=== PATIENT | male | born 1970 | race Two or more races ===

== ENCOUNTER 2016-12-12 10:04 | Inpatient (IN) | payer OTHER ==
[~2016-12-12] VITALS: Ht 172.7 cm; Wt 87.5 kg
[2016-12-12] VITALS (10 sets, daily range): BP systolic 128–167; BP diastolic 76–100
--- NOTE | 2016-12-12 10:22 | Emergency Room Report ---
History of Present Illness General Chief Complaint: Abdominal Pain Source: Patient Present Illness HPI Patient present with complaints of right lower quadrant pain ongoing for the past 14 hours Pain is 6/10 sharp localized to that region He had taken medications for possible gas however this morning as the pain Persisted this morning patient was concerning came to the ER Denies any vomiting however has had decreased oral intake Denies any diarrhea denies any fevers Denies any chest pain or shortness of breath Allergies: Coded Allergies: No Known Allergies (Unverified , 12/12/16) Patient History Past Medical History: see triage record Pertinent Family History: none Reviewed Nursing Documentation: PMH: Agreed, PSxH: Agreed Nursing Documentation-PMH Past Medical History: No History, Except For Review of Systems All Other Systems: negative except mentioned in HPI Physical Exam Vital Signs Date Time Temp Pulse Resp B/P Pulse Ox O2 Delivery O2 Flow Rate FiO2 12/12/16 10:08 98.2 90 16 149/102 95 Room Air Sp02 EP Interpretation: reviewed, normal General Appearance: well appearing, no apparent distress Head: normocephalic, atraumatic Eyes: bilateral eye EOMI, bilateral eye PERRL ENT: hearing grossly normal, normal pharynx, TMs + canals normal, uvula midline Neck: full range of motion, supple, no meningismus, no bony tend Respiratory: lungs clear, normal breath sounds, no rhonchi, no respiratory distress, no retraction, no accessory muscle use Cardiovascular #1: normal peripheral pulses, regular rate, rhythm, no edema, no gallop, no JVD, no murmur Gastrointestinal: normal bowel sounds, soft, no mass, no organomegaly, non- distended, no guarding, no hernia, no pulsatile mass, no rebound, tenderness - Over the right lower abdominal area, approaching the inguinal region Genitourinary: no CVA tenderness Musculoskeletal: normal inspection Neurologic: oriented x3, responsive, motel clerk III-XII nml as tested, motor strength/ tone normal, sensory intact Psychiatric: mood/affect normal Skin: normal color, no rash, warm/dry, palpation normal Lymphatic: normal inspection, no adenopathy Medical Decision Making Diagnostic Impression: Primary Impression: Acute appendicitis ER Course With the history exam and presentation, multiple differentials considered, including but not limited to appendicitis, gastritis, cholecystitis, diverticulitis Patient's white blood cell count had minimal elevation and At this time the CT report is read by radiology as acute appendicitis Patient provided with IV antibiotics general surgery has been contacted and will consult on patient Labs Test 12/12/16 10:30 12/12/16 11:35 White Blood Count 11.1 K/UL (4.8-10.8) Red Blood Count 5.32 M/UL (4.70-6.10) Hemoglobin 16.1 G/DL (14.2-18.0) Hematocrit 48.1 % (42.0-52.0) Mean Corpuscular Volume 90 FL (80-99) Mean Corpuscular Hemoglobin 30.3 PG (27.0-31.0) Mean Corpuscular Hemoglobin Concent 33.5 G/DL (32.0-36.0) Red Cell Distribution Width 12.4 % (11.6-14.8) Platelet Count 175 K/UL (150-450) Mean Platelet Volume 9.4 FL (6.5-10.1) Neutrophils (%) (Auto) 79.4 % (45.0-75.0) Lymphocytes (%) (Auto) 12.7 % (20.0-45.0) Monocytes (%) (Auto) 6.0 % (1.0-10.0) Eosinophils (%) (Auto) 1.1 % (0.0-3.0) Basophils (%) (Auto) 0.7 % (0.0-2.0) Prothrombin Time 10.0 SEC (9.30-11.50) Prothromb Time International Ratio 1.0 (0.9-1.1) Activated Partial Thromboplast Time 28 SEC (23-33) Sodium Level 137 mEQ/L (135-145) Potassium Level 3.8 mEQ/L (3.4-4.9) Chloride Level 96 mEQ/L (98-107) Carbon Dioxide Level 24 mEQ/L (20-30) Anion Gap 17 (5-15) Blood Urea Nitrogen 12 mg/dL (7-23) Creatinine 1.1 mg/dL (0.7-1.2) Estimat Glomerular Filtration Rate > 60 mL/min (>60) Glucose Level 116 mg/dL (74-106) Calcium Level 9.3 mg/dL (8.6-10.2) Total Bilirubin 0.7 mg/dL (0.0-1.2) Aspartate Amino Transf (AST/SGOT) 20 U/L (5-40) Alanine Aminotransferase (ALT/SGPT) 21 U/L (3-41) Alkaline Phosphatase 84 U/L (40-129) Total Protein 7.2 g/dL (6.6-8.7) Albumin 4.3 g/dL (3.5-5.2) Globulin 2.9 g/dL Albumin/Globulin Ratio 1.4 (1.0-2.7) Lipase 26 U/L (< 60) Urine Color Pale yellow Urine Appearance Clear Urine pH 6 (4.5-8.0) Urine Specific [place] 1.010 (1.005-1.035) Urine Protein Negative (NEGATIVE) Urine Glucose (UA) Negative (NEGATIVE) Urine Ketones Negative (NEGATIVE) Urine Occult Blood 1+ (NEGATIVE) Urine Nitrite Negative (NEGATIVE) Urine Bilirubin Negative (NEGATIVE) Urine Urobilinogen Normal MG/DL (0.0-1.0) Urine Leukocyte Esterase Negative (NEGATIVE) Urine RBC 0-2 /HPF (0 - 0) Urine WBC 0-2 /HPF (0 - 0) Urine Squamous Epithelial Cells Occasional /LPF Urine Bacteria Occasional /HPF (NONE) Last Vital Signs Date Time Temp Pulse Resp B/P Pulse Ox O2 Delivery O2 Flow Rate FiO2 12/12/16 10:08 98.2 90 16 149/102 95 Room Air Status: improved Disposition: ADMITTED INPATIENT Condition: Serious DEBORA PRADO D.O. December 12, 2016 10:22
[2016-12-12] MEDS ORDERED: Ketorolac 30mg Inj IV ONE (10:30)
[2016-12-12 10:49] LABS: BASOPHILS % (AUTO) 0.7 % (0.0-2.0); EOSINOPHILS % (AUTO) 1.1 % (0.0-3.0); LYMPHOCYTES % (AUTO) 12.7 % (20.0-45.0); MEAN CORPUSCULAR HEMOGLOBIN 30.3 PG (27.0-31.0); MEAN CORPUSCULAR HGB CONC 33.5 G/DL (32.0-36.0); MEAN CORPUSCULAR VOLUME 90 FL (80-99); MEAN PLATELET VOLUME 9.4 FL (6.5-10.1); NEUTROPHILS % (AUTO) 79.4 % (45.0-75.0); PLATELET COUNT 175 K/UL (150-450); RED BLOOD COUNT 5.32 M/UL (4.70-6.10); RED CELL DISTRIBUTION WIDTH 12.4 % (11.6-14.8); WHITE BLOOD COUNT 11.1 K/UL (4.8-10.8)
[2016-12-12 11:03] LABS: ALANINE AMINOTRANSFERASE 21 U/L (3-41); ALBUMIN/GLOBULIN RATIO 1.4 (1.0-2.7); ANION GAP 17 (5-15); ASPARTATE AMINO TRANSFERASE 20 U/L (5-40); CALCIUM 9.3 mg/dL (8.6-10.2); CARBON DIOXIDE 24 mEQ/L (20-30); CHLORIDE 96 mEQ/L (98-107); CREATININE 1.1 mg/dL (0.7-1.2); GLOMERULAR FILTRATION RATE > 60 mL/min (>60); HEMOLYSIS 9; LIPASE 26 U/L (< 60); POTASSIUM 3.8 mEQ/L (3.4-4.9); SODIUM 137 mEQ/L (135-145); TOTAL PROTEIN 7.2 g/dL (6.6-8.7)
[2016-12-12 12:08] LABS: APPEARANCE,URINE CLEAR; KETONES,URINE NEGATIVE (NEGATIVE); LEUKOCYTE ESTERASE ,URINE NEGATIVE (NEGATIVE); NITRITE,URINE NEGATIVE (NEGATIVE); PH,URINE 6 (4.5-8.0); PROTEIN,URINE NEGATIVE (NEGATIVE); UROBILINOGEN,URINE NORMAL MG/DL (0.0-1.0)
[2016-12-12 12:20] LABS: BACTERIA,URINE OCCASIONAL /HPF; RBC,URINE 0-2 /HPF (0 - 0); SQUAMOUS EPITHELIAL CELL,UR OCCASIONAL /LPF (NONE/OCC); WBC,URINE 0-2 /HPF (0 - 0)
[2016-12-12] MEDS ORDERED: Zosyn 3.375gm inj ONE (14:07)
[2016-12-12] MEDS ORDERED: Piperacillin/Tazobactam 3.375 GM in NS 110 ML IVPB ONE ×2 (14:15→22:50)
[2016-12-12] MEDS ORDERED: BUSPIRONE HCL30 MG ORAL (14:19)
[2016-12-12] MEDS ORDERED: BUPROPION HCL100 MG ORAL (15:31)
[2016-12-12] MEDS ORDERED: WELLBUTRIN XL150 M3 ORAL (15:48)
[2016-12-12] MEDS ORDERED: OMEPRAZOLE20 M2 ORAL (15:48)
[2016-12-12] MEDS ORDERED: Bupivacaine 0.25% Inj 30ml INJ ONE (16:31)
[2016-12-12] MEDS ORDERED: Bacitracin 50000 Units Vial ONE (16:31)
[2016-12-12] MEDS ORDERED: Propofol 10mg/ml 20ml IV ONE ×2 (16:52→16:55)
[2016-12-12] MEDS ORDERED: Sterile Water Irrig 1000ml IRRIG ONE (17:00)
[2016-12-12] MEDS ORDERED: NS Irrig 1000ml ONE (17:00)
[2016-12-12] MEDS ORDERED: Ketorolac 30mg Inj ONE (17:00)
[2016-12-12] MEDS ORDERED: Glycopyrrolate 0.2mg/ml 1ml Vial ONE (17:00)
[2016-12-12] MEDS ORDERED: Succinylcholine 20mg/ml 10ml vial ONE (17:00)
[2016-12-12] MEDS ORDERED: Midazolam 2mg/2ml Inj ONE (17:00)
[2016-12-12] MEDS ORDERED: fentaNYL 100 mcg/2 mL IV ONE (17:00)
[2016-12-12] MEDS ORDERED: Zemuron 50mg/5ml Inj IV ONE (17:00)
[2016-12-12] MEDS ORDERED: Neostigmine 1mg/ml 10ml Inj ONE (17:00)
[2016-12-12] MEDS ORDERED: LR 1000ml ONE (17:00)
--- NOTE | 2016-12-12 17:06 | Pre-Procedure Note/Attestation ---
Pre-Procedure Note/Attestation Complete Prior to Procedure Planned Procedure: not applicable Procedure Narrative: Laparoscopic appendectomy, possible open appendectomy Indications for Procedure Pre-Operative Diagnosis: acute appendicitis Attestation I attest that I discussed the nature of the procedure; its benefits; risks and complications; and alternatives (and the risks and benefits of such alternatives ), prior to the procedure, with the patient (or the patient's legal account executive sales representative). I attest that, if there was a reasonable possibility of needing a blood transfusion, the patient (or the patient's legal account executive sales representative) was given the [facility] standardized written summary, pursuant to the [place] Blood Safety Act ([place] Health and Safety Code # 1645, as amended). I attest that I re-evaluated the patient just prior to the surgery and that there has been no change in the patient's H&P, except as documented below: JAK JI December 12, 2016 17:06
--- NOTE | 2016-12-12 17:56 | Brief Operative Note ---
Immediate Post Operative Note Operative Note Pre-op Diagnosis: acute appendicitis Procedure: laparoscopic appendectomy Post-op Diagnosis: acute appendicitis Findings: consistent w/pre-op dx studies Surgeon: MD Norma Newspaper Delivery Counselor: none Anesthesiologist: Dr. Neri Anesthesia: general Specimen: yes Complications: none Condition: stable Estimated Blood Loss: minimal Drains: none Implant(s) used?: No JAK JI December 12, 2016 17:56
[2016-12-12] MEDS ORDERED: Hydromorphone 0.5mg/0.5ml inj IVP PRN ×2 (18:00→18:30)
[2016-12-12] MEDS ORDERED: Acetaminophen 650 MG SUPP RECTAL PRN (18:00)
[2016-12-12] MEDS ORDERED: Metoclopramide 10mg/2ml Inj IVP PRN ×2 (18:00→18:30)
[2016-12-12] MEDS ORDERED: LR 1000ml 1,000 ML IVLG SCH (18:23)
[2016-12-12] MEDS ORDERED: Meperidine 25mg/0.5ml Inj IM PRN (18:30)
[2016-12-12] MEDS ORDERED: Ketorolac 30mg Inj IV PRN (18:30)
[2016-12-12] MEDS ORDERED: DiphenhydrAMINE 50mg/ml Inj IVP PRN (18:30)
--- NOTE | 2016-12-12 19:39 | Anethesia Preoperative Eval ---
Anesthesia Pre-op PMH/ROS General Date of Evaluation: December 12, 2016 Time of Evaluation: 16:42 Anesthesiologist: Halle ASA Score: ASA 2 Mallampati Score Class I : Soft palate, uvula, fauces, pillars visible Class II: Soft palate, uvula, fauces visible Class III: Soft palate, base of uvula visible Class IV: Only hard plate visible Mallampati Classification: Class II Surgeon: Becca Diagnosis: Acute appendicitis Surgical Procedure: Laparoscopic appendectomy Anesthesia History: none Family History: no anesthesia problems Allergies: Coded Allergies: No Known Allergies (Unverified , 12/12/16) Medications: see eMAR Past Medical History Cardiovascular: Denies: CAD, HTN, [place], arrhythmia, other, valve dz Pulmonary: Denies: COPD, ELI, asthma, other Gastrointestinal/Genitourinary: Reports: GERD - mild, Denies: CRI, ESRD, other Neurologic/Psychiatric: Denies: CVA, TIA, dementia, depression/anxiety, other Endocrine: Denies: DM, hypothyroidism, other, steroids HEENT: Denies: [place] (L), [place] (R), cataract (L), cataract (R), glaucoma, other Hematology/Immune: Denies: DVT, anemia, bleeding disorder, other Musculoskeletal/Integumentary: Denies: DDD, DJD, OA, RA, edema, other PMH Narrative: admitted with acute abdominal pain PSxH Narrative: septoplasty Anesthesia Pre-op Phys. Exam Physician Exam Last Vital Signs Date Time Temp Pulse Resp B/P Pulse Ox O2 Delivery O2 Flow Rate FiO2 12/12/16 19:12 98.0 72 18 129/86 97 Nasal Cannula 2.0 Constitutional: NAD Neurologic: CN 2-12 intact Cardiovascular: RRR Respiratory: CTA Gastrointestinal: other - some tenderness Airway Exam Mallampati Score: Class II MO: full Neck: flexible ROM: full Teeth: intact Dentures: no lower, no upper Anesthesia Pre-op A/P Labs Hematology Test 12/12/16 10:30 White Blood Count 11.1 K/UL (4.8-10.8) H Red Blood Count 5.32 M/UL (4.70-6.10) Hemoglobin 16.1 G/DL (14.2-18.0) Hematocrit 48.1 % (42.0-52.0) Mean Corpuscular Volume 90 FL (80-99) Mean Corpuscular Hemoglobin 30.3 PG (27.0-31.0) Mean Corpuscular Hemoglobin Concent 33.5 G/DL (32.0-36.0) Red Cell Distribution Width 12.4 % (11.6-14.8) Platelet Count 175 K/UL (150-450) Mean Platelet Volume 9.4 FL (6.5-10.1) Neutrophils (%) (Auto) 79.4 % (45.0-75.0) H Lymphocytes (%) (Auto) 12.7 % (20.0-45.0) L Monocytes (%) (Auto) 6.0 % (1.0-10.0) Eosinophils (%) (Auto) 1.1 % (0.0-3.0) Basophils (%) (Auto) 0.7 % (0.0-2.0) Coagulation Test 12/12/16 10:30 Prothrombin Time 10.0 SEC (9.30-11.50) Prothromb Time International Ratio 1.0 (0.9-1.1) Activated Partial Thromboplast Time 28 SEC (23-33) Chemistry Test 12/12/16 10:30 Sodium Level 137 mEQ/L (135-145) Potassium Level 3.8 mEQ/L (3.4-4.9) Chloride Level 96 mEQ/L (98-107) L Carbon Dioxide Level 24 mEQ/L (20-30) Anion Gap 17 (5-15) H Blood Urea Nitrogen 12 mg/dL (7-23) Creatinine 1.1 mg/dL (0.7-1.2) Estimat Glomerular Filtration Rate > 60 mL/min (>60) Glucose Level 116 mg/dL (74-106) H Calcium Level 9.3 mg/dL (8.6-10.2) Total Bilirubin 0.7 mg/dL (0.0-1.2) Aspartate Amino Transf (AST/SGOT) 20 U/L (5-40) Alanine Aminotransferase (ALT/SGPT) 21 U/L (3-41) Alkaline Phosphatase 84 U/L (40-129) Total Protein 7.2 g/dL (6.6-8.7) Albumin 4.3 g/dL (3.5-5.2) Globulin 2.9 g/dL Albumin/Globulin Ratio 1.4 (1.0-2.7) Lipase 26 U/L (< 60) Risk Assessment & Plan Assessment: ASA 2E Plan: GA with ETT Status Change Before Surgery: No Pre-Antibiotics Drug: Ancef 1gr. Given Within 1 Hr of Incision: Yes Time Given: 17:05 SHINE BLACKWOOD M.D. December 12, 2016 19:39
--- NOTE | 2016-12-12 19:41 | Immediate Post-Op Evaluation ---
Immediate Post-Op Evalulation Immediate Post-Op Evalulation Procedure: Laparoscopic appendectomy Date of Evaluation: December 12, 2016 Time of Evaluation: 18:06 IV Fluids: 1000 Blood Products: none Estimated Blood Loss: <50 Urinary Output: none Blood Pressure Systolic: 148 Blood Pressure Diastolic: 85 Pulse Rate: 78 Respiratory Rate: 22 O2 Sat by Pulse Oximetry: 98 Temperature (Fahrenheit): 97.6 Pain Score (1-10): 2 Nausea: No Vomiting: No Complications none Patient Status: reacts, patent, extubated, none Hydration Status: adequate SHINE BLACKWOOD M.D. December 12, 2016 19:41
--- NOTE | 2016-12-12 21:08 | Consultation ---
DATE OF CONSULTATION: 12/12/2016 PREOPERATIVE CONSULTATION: CONSULTING PHYSICIAN: Becca Guillen M.D. ATTENDING PHYSICIAN: Lina Urena D.O. REFERRING PHYSICIAN: Lina Urena D.O. REQUESTING PHYSICIAN: Lina Urena D.O. REASON FOR CONSULTATION: Abdominal pain. HISTORY OF PRESENT ILLNESS: This is a 46-year-old male, who presented with abdominal pain since last night. The pain is located at the right lower quadrant. No radiation. He denies any nausea or vomiting. He had a normal bowel movement this morning. He denies any fever, cough, dysuria, or frequency. He denies any previous history of similar pain. PAST MEDICAL HISTORY: He denies allergies, asthma, diabetes, hypertension, cardiac, and renal diseases. PAST SURGICAL HISTORY: Surgeries include repair of the left Achilles tendon and rhinoplasty. MEDICATIONS: none. SOCIAL HISTORY: The patient is a 46-year-old male, who is , without children. He is a realtor. He smokes occasionally and denies drinking. He has a history of drug abuse, but has been clean for a long time. REVIEW OF SYSTEMS: Noncontributory. PHYSICAL EXAMINATION: GENERAL: The patient appeared to be a well-developed, well-nourished, 46-year-old male, in no acute distress, complaining of abdominal pain. HEENT: Head is normocephalic and atraumatic. Eyes, pupils are equal, round, and reactive to light. Mouth is clear. NECK: There is no palpable thyromegaly or adenopathy. CHEST: Clear to auscultation and percussion. HEART: There is no gallop or murmur. S1 and S2 are within normal limits. ABDOMEN: Soft and flat. There is no palpable organomegaly and bowel sounds are audible. He has tenderness and guarding at right lower quadrant. GENITAL: Normal. EXTREMITIES: Within normal limits. LABORATORY DATA: CBC has shown WBC of 12,000 with left shift. Chemistry and UA are normal. DIAGNOSTIC DATA: CAT scan of the abdomen has been interpreted as acute appendicitis. ASSESSMENT: Acute appendicitis. PLAN: After rehydration, the patient will undergo laparoscopy appendectomy, possible open appendectomy. The risks and benefits have been explained to him. He understood and granted consent. Mindy Hudson M.D. DR: Mehnaz JOB#: [id number] CC: PAULETTE
[2016-12-12] MEDS: HYDROmorphone 1mg/ml Carpuject IVP PRN (21:27)
[2016-12-12] MEDS ORDERED: BUPROPION XL150 MG ORAL (21:31)
[2016-12-12] MEDS: D5 1/2NS w/KCl 20mEq 1,000 ML IV SCH (23:03)
[2016-12-12] MEDS: Famotidine 20 MG/ 2ML VIAL IVP SCH (23:04)
[2016-12-13 00:26] VITALS: BP 141/92
[2016-12-13] MEDS: HYDROmorphone 1mg/ml Carpuject IVP PRN ×3 (02:36→12:17)
--- NOTE | 2016-12-13 03:19 | Operative Note - Dictated ---
PREOPERATIVE DIAGNOSIS: Acute appendicitis. POSTOPERATIVE DIAGNOSIS: Acute appendicitis. OPERATION: Laparoscopy appendectomy. COMPLICATION: None. SURGEON: Mindy Hudson M.D. MANAGER STAR: None. ANESTHESIA: General with endotracheal tube. ANESTHESIOLOGIST: Vasu Neri M.D. INDICATION: This is a 46-year-old male, who presented with abdominal pain since last night. The pain was located at right lower quadrant. Physical examination showed tenderness and guarding at right lower quadrant. CBC showed WBC of 11,100 with a mild left shift and the CAT scan of the abdomen was interpreted as acute appendicitis. DESCRIPTION OF PROCEDURE: The patient was placed supine on the operating table. After general anesthesia with endotracheal tube, the abdomen was properly prepped and draped. A small incision was given above the umbilicus through which a Veress needle was introduced into the intraperitoneal cavity. This cavity was insufflated up to 15 mmHg and then the Veress needle was removed and a 5 mm trocar was placed in the intraperitoneal cavity through the incision above the umbilicus. Laparoscopic camera was introduced into the intraperitoneal cavity through the trocar above the umbilicus. Under direct vision, 5 mm trocar was placed at the suprapubic area and a 12 mm trocar was placed at the left lower quadrant of the abdomen. Initially, rapid exploration was performed which showed the diaphragms to be normal. The small part of the stomach which seen, which was normal. The liver showed mild fatty infiltrate. The gallbladder was normal. Bowels were covered with the fatty omentum. The patient has some serous fluid on the right paracolic gutter. The exploration of the right lower quadrant cavity was performed and the cecum was identified. Further exploration was performed and the appendix was identified and isolated. Appendix was distended and inflamed. The appendix and mesoappendix was exposed and then it was ligated and transected with the help of the MATEO stapler. The appendix was removed from the intraperitoneal cavity through the incision at the left lower quadrant of the abdomen with the help of the Endo pouch. After removal of the appendix, the intraperitoneal cavity was thoroughly irrigated with antibiotic solution and then another exploration was performed which failed to show any complication or bleeding and the trocars were removed under direct vision. The incisions were infiltrated with 30 mL of Marcaine 0.25% and the subcutaneous tissue was approximated with 4-0 chromic and the skin incisions were approximated with running subcuticular suture of 4-0 chromic. The patient tolerated the procedure very well. He was transferred to recovery room in stable condition and extubated. The sponge and needle count correct. Estimated blood loss 5 mL. Condition of the patient at the end of the procedure was stable. Mindy Hudson M.D. DR: Virgil JOB#: [id number] CC:
[2016-12-13 04:04] VITALS: BP 130/72
[2016-12-13 07:40] LABS: BASOPHILS % (AUTO) 1.2 % (0.0-2.0); EOSINOPHILS % (AUTO) 2.1 % (0.0-3.0); LYMPHOCYTES % (AUTO) 23.3 % (20.0-45.0); MEAN CORPUSCULAR HGB CONC 33.8 G/DL (32.0-36.0); MEAN CORPUSCULAR VOLUME 92 FL (80-99); MEAN PLATELET VOLUME 8.9 FL (6.5-10.1); MONOCYTES % (AUTO) 9.2 % (1.0-10.0); NEUTROPHILS % (AUTO) 64.2 % (45.0-75.0); PLATELET COUNT 142 K/UL (150-450); RED BLOOD COUNT 4.27 M/UL (4.70-6.10); RED CELL DISTRIBUTION WIDTH 12.7 % (11.6-14.8); WHITE BLOOD COUNT 7.2 K/UL (4.8-10.8)
[2016-12-13 08:00] VITALS: BP 139/79
[2016-12-13] MEDS: Famotidine 20 MG/ 2ML VIAL IVP SCH (08:13)
[2016-12-13] MEDS: D5 1/2NS w/KCl 20mEq 1,000 ML IV SCH (08:17)
[2016-12-13 08:33] LABS: ANION GAP 14 (5-15); CALCIUM 8.6 mg/dL (8.6-10.2); CARBON DIOXIDE 25 mEQ/L (20-30); CHLORIDE 99 mEQ/L (98-107); GLOMERULAR FILTRATION RATE > 60 mL/min (>60); HEMOLYSIS 9; POTASSIUM 4.1 mEQ/L (3.4-4.9); SODIUM 138 mEQ/L (135-145)
--- NOTE | 2016-12-13 09:49 | History and Physical Report ---
DATE OF ADMISSION: 12/12/2016 CHIEF COMPLAINT: Acute appendicitis. HISTORY OF PRESENT ILLNESS: The patient is a pleasant 46-year-old male. He has a prior history of methamphetamine abuse presented with complaints of two days of right lower quadrant abdominal pain. On evaluation in the emergency room, the patient had a white count [address]12. CT scan showed acute appendicitis. The patient is now status post laparoscopic appendectomy, which he tolerated well. PAST MEDICAL HISTORY: As above. PAST SURGICAL HISTORY: None. MEDICATIONS: Current medications were reconciled and reviewed. ALLERGIES: None. SOCIAL HISTORY: Negative for tobacco. The patient smokes few cigarettes. He has a prior history of methamphetamine abuse. FAMILY HISTORY: None. REVIEW OF SYSTEMS: Unremarkable except for right lower quadrant abdominal pain. PHYSICAL EXAMINATION: VITAL SIGNS: Temperature 97.5 degrees, blood pressure 141/92 pulse 74, and respirations 20. GENERAL: The patient in no apparent distress. HEART: Regular rate and rhythm. LUNGS: Clear. ABDOMEN: Soft but diffusely tender. EXTREMITIES: No clubbing, cyanosis, or edema. LABORATORY DATA: White count 11 and hemoglobin 11. Sodium 137 and potassium 3.8. Urine was clear. ASSESSMENT: This is a pleasant male admitted with complaints of acute appendicitis status post laparoscopic appendectomy. PLAN: IV fluids. IV antibiotics. Advance diet per surgery. DVT prophylaxis with SCDs. Tan Frey M.D. DR: Merline JOB#: [id number] CC:
--- NOTE | 2016-12-13 11:16 | 48 Hour Post Anesthesia Eval ---
Post Anesthesia Evaluation Procedure: Laparoscopic appendectomy Date of Evaluation: December 13, 2016 Time of Evaluation: 11:15 Blood Pressure Systolic: 139 0: 79 Pulse Rate: 61 Respiratory Rate: 19 Temperature (Fahrenheit): 98.4 O2 Sat by Pulse Oximetry: 94 Airway: patent Nausea: No Vomiting: No Pain Intensity: 0 Hydration Status: adequate Cardiopulmonary Status: at baseline Mental Status/LOC: patient returned to baseline Post-Anesthesia Complications: 0 Follow-up care needed: N/A - further care as per primary team STONEY TIRADO M.D. December 13, 2016 11:16
--- NOTE | 2016-12-13 11:53 | Diagnostic Imaging Report ---
Indications: Abdominal pain Technique: Continuous helical CT imaging of the abdomen and pelvis was performed with automatic exposure control following administration of oral and intravenous nonionic iodine contrast, on a Siemens sensation [address] scanner. Axial, coronal, and sagittal images were reconstructed at 5 mm slice thickness. CTDI volume(s): 17 mGy Total DLP: 938 mGy-cm Findings: Comparison: None Oral contrast has passed throughout the gastrointestinal tract to the level of descending colon. Appendix 10 mm diameter, diffuse mural thickening and surrounding stranding. No associated extraluminal gas or fluid collections. Remainder of tract nondilated. Multiple diverticula in descending and sigmoid colon. No additional mural thickening or adjacent stranding, extraluminal gas or fluid collections. Liver, gallbladder, pancreas, spleen, adrenal glands, kidneys, unopacified ureters and urinary bladder, prostate, seminal vesicles, vascular structures, retroperitoneum, remainder of mesentery, remainder visualized abdominopelvic anatomy unremarkable. Small pleural-based linear densities in both lung bases. Disc space narrowing with marginal osteophyte formation, vacuum phenomenon lower lumbar spine. Impression: Findings compatible with acute appendicitis. No evidence of associated perforation or abscess. No other evidence of acute abdominopelvic disease Colonic diverticulosis Minimal pulmonary bibasal subsegmental atelectasis Degenerative spondylosis Critical results discussed with Juwan, ER physician, by telephone 12/12/2016 at approximately 1330
[2016-12-13 12:00] VITALS: BP 145/91
--- NOTE | 2016-12-13 12:43 | General Surgery Progress Note ---
General Surgery-Progress Note Subjective Procedure Performed laparoscopic appendectomy Symptoms: improved, BM Objective Last 24 Hour Vital Signs Date Time Temp Pulse Resp B/P Pulse Ox O2 Delivery O2 Flow Rate FiO2 12/13/16 12:00 98.1 63 20 145/91 96 Room Air 12/13/16 11:16 61 19 94 12/13/16 08:00 98.4 61 19 139/79 94 Room Air 12/13/16 04:04 97.7 64 19 130/72 91 Nasal Cannula 12/13/16 03:06 97.7 12/13/16 00:26 97.5 74 20 141/92 91 Nasal Cannula 12/12/16 19:41 78 22 98 12/12/16 19:12 98.0 72 18 129/86 97 Nasal Cannula 2.0 12/12/16 18:55 72 18 138/86 97 Nasal Cannula 2.0 12/12/16 18:40 78 18 136/92 99 Simple Mask 8.0 12/12/16 18:25 97.0 78 18 143/90 99 Simple Mask 8.0 12/12/16 18:11 97.0 80 18 149/88 100 Simple Mask 10.0 12/12/16 18:06 87 18 146/91 100 Simple Mask 10.0 12/12/16 18:01 97.0 87 18 167/100 100 Simple Mask 10.0 12/12/16 16:22 128/80 12/12/16 15:12 98.1 67 16 128/80 99 Room Air 12/12/16 13:00 98.4 72 16 141/76 100 Room Air I&O Intake and Output 12/12/16 12/13/16 19:00 07:00 Intake Total 1000 ml 100 ml Balance 1000 ml 100 ml IV Total 1000 ml 100 ml # Voids 2 3 Dressing: dry Drains: none Respiratory: clear Abdomen: soft, flat, non-tender, present bowel sounds Extremities: no edema, no tenderness Laboratory Tests Test 12/13/16 05:20 White Blood Count 7.2 K/UL (4.8-10.8) Red Blood Count 4.27 M/UL (4.70-6.10) L Hemoglobin 13.2 G/DL (14.2-18.0) L Hematocrit 39.1 % (42.0-52.0) L Mean Corpuscular Volume 92 FL (80-99) Mean Corpuscular Hemoglobin 31.0 PG (27.0-31.0) Mean Corpuscular Hemoglobin Concent 33.8 G/DL (32.0-36.0) Red Cell Distribution Width 12.7 % (11.6-14.8) Platelet Count 142 K/UL (150-450) L Mean Platelet Volume 8.9 FL (6.5-10.1) Neutrophils (%) (Auto) 64.2 % (45.0-75.0) Lymphocytes (%) (Auto) 23.3 % (20.0-45.0) Monocytes (%) (Auto) 9.2 % (1.0-10.0) Eosinophils (%) (Auto) 2.1 % (0.0-3.0) Basophils (%) (Auto) 1.2 % (0.0-2.0) Sodium Level 138 mEQ/L (135-145) Potassium Level 4.1 mEQ/L (3.4-4.9) Chloride Level 99 mEQ/L (98-107) Carbon Dioxide Level 25 mEQ/L (20-30) Anion Gap 14 (5-15) Blood Urea Nitrogen 9 mg/dL (7-23) Creatinine 1.0 mg/dL (0.7-1.2) Estimat Glomerular Filtration Rate > 60 mL/min (>60) Glucose Level 115 mg/dL (74-106) H Calcium Level 8.6 mg/dL (8.6-10.2) Assessment Post-op Diagnosis acute appendicitis Plan Additional Comments discharge to home JAK JI December 13, 2016 12:43
--- NOTE | 2016-12-13 12:45 | Discharge Instructions ---
Discharge Instructions Discharge Instructions Follow up with: my office in one week Diet: full liquid Additional Diet Information: regular diet as of tomorrow Resume Normal Activity?: Yes Activity: as tolerated For Surgical Patients Dressing Care: other - dressing will be removed by surgeon May shower: Yes For Congestive Heart Failure Reminder Report to your physician any weight gain of 5 pounds or more in one week. JAK JI December 13, 2016 12:45
[2016-12-13] MEDS ORDERED: PERI-COLACE TA1 EACH PO (13:40)
[2016-12-13] MEDS ORDERED: LEVAQUIN500 MG ORAL (13:41)
[2016-12-13] MEDS ORDERED: TRAMADOL HCL50 MG ORAL (13:42)
--- NOTE | 2016-12-14 08:04 | Discharge Summary ---
Discharge Summary Hospital Course Date of Admission December 12, 2016 at 20:56 Date of Discharge December 13, 2016 at 15:30 Admitting Diagnosis acute appendicitis HPI Heber Kilpatrick is a 46 year old male who was admitted on December 12, 2016 at 20:56 for Acute Appendicitis Hospital Course dc summary #[id number] Discharge Medications Continued Medications: Bupropion Xl* (Bupropion Xl*) 150 Mg Tab.er.24h 300 MG ORAL Q24H, TAB 0 Refills Levofloxacin* (Levaquin*) 500 Mg Tablet 500 MG ORAL DAILY for 5 Days, TAB Omeprazole (Omeprazole) 20 Mg Capsule.dr 20 MG ORAL DAILY, CAP Sennosides/Docusate Sodium (Shruti-Colace Tablet) 1 Each Tablet 1 EACH PO TID, TAB Tramadol Hcl* (Ultram*) 50 Mg Tablet 50 MG ORAL Q4H PRN for For Pain, #10 TAB 0 Refills Discharge Condition Upon Discharge: stable Discharge Disposition Patient was discharged to Home (01) Discharge Diagnoses: Discharge Instructions Discharge Instructions Follow up with: my office in one week Additional Diet Information: regular diet as of tomorrow Activity: as tolerated Special Instructions I have been assigned to complete a D/C Summary on this account. I was not involved in the patient management For Surgical Patients Dressing Care: other - dressing will be removed by surgeon December shower: Yes Faith Rouse NP ([place]te[place]) December 14, 2016 08:04
--- NOTE | 2016-12-15 00:29 | Discharge Summary 2 SIG ---
DATE OF ADMISSION: 12/12/2016 DATE OF DISCHARGE: 12/13/2016 REASON FOR ADMISSION: 46-year-old male without any past medical history, came to emergency room complaining of the right lower quadrant pain for the last 14 hours. Pain was described as sharp, nonradiating,6/10 on a scale 1 to 10. The patient reported taking medication for possible gas, however, pain did not go away. CT of the abdomen and pelvis revealed acute appendicitis. No abscess. No perforation. The patient had no fever. Mild leukocytosis -11.1. The patient was started on the IV fluids and IV antibiotics. Surgery consult was requested. ADMITTING DIAGNOSES: 1. Acute appendicitis. 2. Right lower quadrant abdominal pain. HOSPITAL COURSE: The patient was admitted .Surgery consult was requested stat. The patient subsequently undergone laparoscopic appendectomy. Course of recovery was uneventful. Pain management was provided. Patient was able to tolerate diet. Patient was able to ambulate. Patient voided freely. No leukocytosis. The patient was stable for discharge home. Follow up with the surgeon as outpatient. Due to the rapid and unexpected improvement in patent's condition, the patient was discharged in one day. DISCHARGE DIAGNOSIS: 1.Acute appendicitis 2. status post laparoscopic appendectomy. DISCHARGE MEDICATIONS: See medication reconciliation list. DISCHARGE INSTRUCTIONS: The patient was discharged home. The patient will need antibiotics for additional five days. The patient to follow up with the surgeon as outpatient. Tan Frey M.D. I have been assigned to dictate discharge summary on this account and I was not involved in the patient's management. Faith Rouse (Vanchtein) N.PTyrel DR: LINN JOB#: [id number] CC: [email or web address]
== END 2016-12-13 15:30 | disposition home or self-care (01) | DRG 343 ==
LOC: EMR 10:20 → EDBEDREQ 14:41 → SUR 16:16 → 3E 20:56
PROC: 0DTJ4ZZ Resection of Appendix, Percutaneous Endoscopic Approach (ICD-10-PCS; principal; 2016-12-12 16:30)
DX: K35.80 Unspecified acute appendicitis (principal)
CPT/HCPCS: 36415; 74177; 80048; 80053; 81003; 83690; 85025; 85610; 85730; 94003; 94150; J2250; J2405; J2710